=== PATIENT | male | born 1985 | race Two or more races ===

== ENCOUNTER 2023-06-02 05:55 | Inpatient (IN) | payer OTHER ==
[~2023-06-02] VITALS: Ht 175.3 cm; Wt 134.9 kg
[2023-06-02] MEDS ORDERED: SODIUM CHLORIDE 0.9% 1,000 ML IV ONE (07:45)
[2023-06-02 08:18] LABS: Albumin 3.2 g/dL (3.4-5.0); Calcium 8.6 mg/dL (8.5-10.1)
[2023-06-02 08:27] LABS: BUN/Creatinine Ratio 18.3 (10.0-20.0); Bilirubin, Total 0.5 mg/dL (0.2-1.0); Potassium 4.1 mmol/L (3.5-5.1); Total Protein 8.5 g/dL (6.4-8.2)
[2023-06-02 08:35] LABS: Basophils # (auto) 0.1 10 ^3/uL (0-0.2); Basophils % (auto) 0.8 % (0.0-2.0); Eosinophils # (auto) 0.8 10 ^3/uL (0-0.8); Eosinophils % (auto) 6.4 % (0.0-7.0); Hematocrit 47.4 % (41.0-53.0); Hemoglobin 15.8 g/dL (13.5-17.5); Lymphocytes # (auto) 2.1 10 ^3/uL (0.4-5.4); Lymphocytes % (auto) 16.6 % (10.0-50.0); Mean Corpuscular Hemoglobin 28.9 pg (28.0-32.0); Mean Corpuscular Hgb Conc. 33.2 g/dL (32.0-36.0); Mean Corpuscular Volume 87.1 fL (80.0-100.0); Monocytes # (auto) 0.8 10 ^3/uL (0-1.3); Monocytes % (auto) 6.4 % (0.0-12.0); Neutrophils # (auto) 8.7 10 ^3/uL (1.6-8.6); Neutrophils % (auto) 69.8 % (37.0-80.0); Nucleated Red Blood Cells % 0.2 %; Red Blood Cells 5.45 10^6/uL (4.5-5.90); Red Cell Distribution Width 16.1 % (11.8-14.3); White Blood Cell 12.4 10^3/uL (4.4-10.8)
[2023-06-02 08:49] LABS: INR 1.14 (0.9-1.15); Partial Thromboplastin Time 27.5 SEC (24.5-34.5)
[2023-06-02] MEDS ORDERED: cefTRIAXone 1GM/50ML D5W 50 ML IV ONE (09:30)
[2023-06-02] MEDS ORDERED: CLINDAMYCIN 900MG IV 50 ML IV ONE (09:30)
[2023-06-02 11:28] VITALS: PULSE 90; RESP 16; O2SAT 95
[2023-06-02] MEDS ORDERED: HYDROcodone-ACET 10/325MG TAB PO ONE (11:30)
[2023-06-02] MEDS ORDERED: cloNIDine HCL 0.1 MG TAB PO ONE (11:30)
[2023-06-02] MEDS ORDERED: CLINDAMYCIN HCL 150 MG CAP PO ONE (11:30)
[2023-06-02] MEDS ORDERED: VANCOMYCIN PER PHARMACY 0 MG IV SCH (13:00)
[2023-06-02] MEDS ORDERED: DOCUSATE SOD 100 MG CAP PO PRN (13:00)
[2023-06-02] MEDS: SODIUM CHLORIDE 0.9% 1,000 ML IV SCH ×2 (13:42→23:10)
[2023-06-02] MEDS ORDERED: PIPERACILLIN-TAZOB 3.375GM 100 ML IV ONE (13:45)
[2023-06-02] MEDS ORDERED: VANCOMYCIN 1GM/250ML 250 ML IV ONE (15:00)
[2023-06-02] MEDS: ONDANSETRON HCL 4 MG/2 ML VIAL IV PRN ×2 (15:07→20:55)
[2023-06-02] MEDS: MORPHINE SULFATE INJ 2 MG/ml SYRG IV PRN ×2 (15:10→20:58)
[2023-06-02] MEDS: ENOXAPARIN SOD 40 MG/0.4 ML SYRINGE SC SCH (15:16)
[2023-06-02 20:00] VITALS: PULSE 95; RESP 18; O2SAT 96
[2023-06-02] MEDS: PIPERACILLIN-TAZOB 3.375GM 100 ML IV SCH (20:59)
[2023-06-02] MEDS: VANCOMYCIN 1GM/250ML 250 ML IV SCH (23:10)
[2023-06-02] MEDS: levETIRAcetam 500 MG TAB PO SCH (23:10)
[2023-06-02] MEDS: hydrALAZINE HCL 20 MG/ML VL IV PRN (23:45)
[2023-06-03] MEDS: MORPHINE SULFATE INJ 2 MG/ml SYRG IV PRN ×3 (02:04→12:08)
[2023-06-03] MEDS: ONDANSETRON HCL 4 MG/2 ML VIAL IV PRN ×3 (02:04→12:08)
[2023-06-03] MEDS: PIPERACILLIN-TAZOB 3.375GM 100 ML IV SCH ×4 (02:50→18:15)
[2023-06-03] MEDS: SODIUM CHLORIDE 0.9% 1,000 ML IV SCH ×3 (05:56→22:20)
[2023-06-03 06:20] LABS: Basophils # (auto) 0 10 ^3/uL (0-0.2); Basophils % (auto) 0.3 % (0.0-2.0); Eosinophils # (auto) 0.5 10 ^3/uL (0-0.8); Eosinophils % (auto) 3.8 % (0.0-7.0); Hematocrit 47.5 % (41.0-53.0); Hemoglobin 15.9 g/dL (13.5-17.5); Lymphocytes % (auto) 7.9 % (10.0-50.0); Mean Corpuscular Hemoglobin 29.3 pg (28.0-32.0); Mean Corpuscular Hgb Conc. 33.6 g/dL (32.0-36.0); Mean Corpuscular Volume 87.2 fL (80.0-100.0); Monocytes # (auto) 0.7 10 ^3/uL (0-1.3); Monocytes % (auto) 5.8 % (0.0-12.0); Neutrophils # (auto) 10.5 10 ^3/uL (1.6-8.6); Neutrophils % (auto) 82.2 % (37.0-80.0); Nucleated Red Blood Cells % 0.2 %; Red Blood Cells 5.44 10^6/uL (4.5-5.90); Red Cell Distribution Width 16.6 % (11.8-14.3); White Blood Cell 12.8 10^3/uL (4.4-10.8)
[2023-06-03 06:36] LABS: Potassium 3.6 mmol/L (3.5-5.1)
[2023-06-03 06:53] LABS: BUN/Creatinine Ratio 12.6 (10.0-20.0); Bilirubin, Total 0.9 mg/dL (0.2-1.0); Calcium 8.1 mg/dL (8.5-10.1); Total Protein 8.5 g/dL (6.4-8.2)
[2023-06-03 07:16] LABS: Urine WBC None Seen /hpf (0 - 3)
[2023-06-03] MEDS: hydrALAZINE HCL 20 MG/ML VL IV PRN (08:21)
[2023-06-03 08:28] VITALS: PULSE 88; RESP 16; O2SAT 95
[2023-06-03 08:47] LABS: Urine Bacteria FEW /hpf (None Seen); Urine Blood Negative /uL (Negative); Urine Mucus FEW (None Seen); Urine Specific Gravity 1.013 (1.001-1.035)
[2023-06-03] MEDS: VANCOMYCIN 1GM/250ML 250 ML IV SCH ×3 (09:04→22:03)
[2023-06-03] MEDS: levETIRAcetam 500 MG TAB PO SCH ×2 (10:21→22:03)
[2023-06-03] MEDS: ENOXAPARIN SOD 40 MG/0.4 ML SYRINGE SC SCH (10:21)
[2023-06-03 17:00] VITALS: BP 149/96; PULSE 110; TEMP 98.2; O2SAT 92
[2023-06-03 22:00] VITALS: BP 155/107; PULSE 113; TEMP 98.9; O2SAT 94
[2023-06-04] MEDS: PIPERACILLIN-TAZOB 3.375GM 100 ML IV SCH ×4 (00:01→17:26)
[2023-06-04] MEDS: VANCOMYCIN 1GM/250ML 250 ML IV SCH ×3 (04:02→22:07)
[2023-06-04 05:00] VITALS: BP 166/105; PULSE 112; RESP 16; TEMP 99.4; O2SAT 96
[2023-06-04] MEDS: SODIUM CHLORIDE 0.9% 1,000 ML IV SCH ×3 (06:04→23:20)
[2023-06-04] MEDS: MORPHINE SULFATE INJ 2 MG/ml SYRG IV PRN ×2 (06:05→11:00)
[2023-06-04] MEDS ORDERED: KEP500T PO (06:30)
[2023-06-04] MEDS ORDERED: FURO40TA4 PO (06:31)
[2023-06-04] MEDS ORDERED: LISI2.5T47 PO (06:31)
[2023-06-04] MEDS ORDERED: CARV12.544 PO (06:32)
[2023-06-04] MEDS: hydrALAZINE HCL 20 MG/ML VL IV PRN (07:09)
[2023-06-04 08:30] VITALS: BP 161/89; PULSE 102; RESP 19; TEMP 98.2; O2SAT 95
[2023-06-04] MEDS: levETIRAcetam 500 MG TAB PO SCH ×2 (09:21→22:00)
[2023-06-04] MEDS: ENOXAPARIN SOD 40 MG/0.4 ML SYRINGE SC SCH (09:22)
[2023-06-04 09:40] VITALS: BP 161/89; PULSE 102; RESP 19; TEMP 98.2; O2SAT 95
[2023-06-04 11:14] VITALS: BP 159/113; PULSE 113
[2023-06-04] MEDS: ACETAMINOPHEN 325 MG TAB PO PRN (13:03)
[2023-06-04 14:46] VITALS: BP 150/106; PULSE 108; RESP 17; TEMP 98.2; O2SAT 100
[2023-06-04 22:00] VITALS: BP 155/95; PULSE 104; RESP 17; TEMP 97.8; O2SAT 100
[2023-06-04] MEDS: MUPIROCIN 2% OINT 15gm or 22gm FOR MRSA NARES EACHNOSTRI SCH (22:38)
[2023-06-05] MEDS: PIPERACILLIN-TAZOB 3.375GM 100 ML IV SCH ×5 (00:09→23:39)
[2023-06-05] MEDS: hydrALAZINE HCL 20 MG/ML VL IV PRN (04:19)
[2023-06-05 04:35] VITALS: BP 156/108; PULSE 109; RESP 21; TEMP 98.1; O2SAT 100
[2023-06-05 05:50] LABS: BUN/Creatinine Ratio 11.2 (10.0-20.0); Calcium 8.6 mg/dL (8.5-10.1); Potassium 3.7 mmol/L (3.5-5.1)
[2023-06-05] MEDS: VANCOMYCIN 1GM/250ML 250 ML IV SCH ×2 (05:59→17:59)
[2023-06-05] MEDS: MORPHINE SULFATE INJ 2 MG/ml SYRG IV PRN ×4 (06:00→23:45)
[2023-06-05] MEDS: ACETAMINOPHEN 325 MG TAB PO PRN ×2 (06:03→12:42)
[2023-06-05] MEDS: SODIUM CHLORIDE 0.9% 1,000 ML IV SCH ×2 (07:40→16:00)
[2023-06-05 08:15] VITALS: O2SAT 95
[2023-06-05 09:00] VITALS: BP 191/96; PULSE 102; RESP 20; TEMP 98.3; O2SAT 95
[2023-06-05] MEDS: FUROSEMIDE 40 MG TAB PO SCH (10:15)
[2023-06-05] MEDS: levETIRAcetam 500 MG TAB PO SCH ×2 (10:15→21:28)
[2023-06-05] MEDS: CARVEDILOL 12.5 MG TAB PO SCH (10:16)
[2023-06-05] MEDS: LISINOPRIL 10 MG TAB PO SCH (10:17)
[2023-06-05] MEDS: ENOXAPARIN SOD 40 MG/0.4 ML SYRINGE SC SCH (10:17)
[2023-06-05] MEDS: MUPIROCIN 2% OINT 15gm or 22gm FOR MRSA NARES EACHNOSTRI SCH ×2 (10:21→21:32)
[2023-06-05 13:00] VITALS: BP_SYST 149; BP_SYST 172; BP_DIAS 103; BP_DIAS 88; PULSE 108; RESP 20; TEMP 98; O2SAT 93
[2023-06-05 17:00] VITALS: BP 135/60; PULSE 75; RESP 19; TEMP 97.3; O2SAT 94
[2023-06-05 22:00] VITALS: BP 152/94; PULSE 82; RESP 16; TEMP 97.8; O2SAT 95
[2023-06-06] MEDS: SODIUM CHLORIDE 0.9% 1,000 ML IV SCH ×3 (00:20→17:00)
[2023-06-06] MEDS: VANCOMYCIN 1GM/250ML 250 ML IV SCH ×2 (03:00→09:22)
[2023-06-06 05:00] VITALS: BP 137/90; PULSE 97; RESP 20; TEMP 97.8; O2SAT 97
[2023-06-06] MEDS: PIPERACILLIN-TAZOB 3.375GM 100 ML IV SCH (05:11)
[2023-06-06] MEDS: ACETAMINOPHEN 325 MG TAB PO PRN (05:30)
[2023-06-06] MEDS: MORPHINE SULFATE INJ 2 MG/ml SYRG IV PRN (06:49)
[2023-06-06 08:15] VITALS: O2SAT 96
[2023-06-06 09:00] VITALS: BP 175/107; PULSE 92; RESP 21; TEMP 98.1; O2SAT 94
[2023-06-06] MEDS: levETIRAcetam 500 MG TAB PO SCH ×2 (09:22→22:07)
[2023-06-06] MEDS: CARVEDILOL 12.5 MG TAB PO SCH (09:23)
[2023-06-06] MEDS: FUROSEMIDE 40 MG TAB PO SCH (09:23)
[2023-06-06] MEDS: LISINOPRIL 10 MG TAB PO SCH (09:23)
[2023-06-06] MEDS: ENOXAPARIN SOD 40 MG/0.4 ML SYRINGE SC SCH (09:23)
[2023-06-06] MEDS ORDERED: CEFTRIAXONE SODIUM 2 GM in D5W 5% 100 ML IV ONE (11:30)
[2023-06-06] MEDS: MUPIROCIN 2% OINT 15gm or 22gm FOR MRSA NARES EACHNOSTRI SCH ×2 (11:34→22:09)
[2023-06-06] MEDS: HYDROcodone-ACET 5/325MG TAB PO PRN ×2 (11:44→22:07)
[2023-06-06 13:00] VITALS: BP 131/92; PULSE 86; RESP 19; TEMP 97.6; O2SAT 90
[2023-06-06 17:00] VITALS: BP 135/104; PULSE 89; RESP 21; TEMP 97.6; O2SAT 97
[2023-06-06] MEDS: hydrALAZINE HCL 20 MG/ML VL IV PRN (22:09)
[2023-06-06 22:36] VITALS: BP 170/108; PULSE 91; RESP 22; TEMP 98.5; O2SAT 96
[2023-06-07 05:11] VITALS: BP_SYST 0; BP_SYST 169; BP_DIAS 126; PULSE 111; RESP 22; TEMP 98.3; O2SAT 97
[2023-06-07] MEDS: MORPHINE SULFATE INJ 2 MG/ml SYRG IV PRN (05:42)
[2023-06-07] MEDS: SODIUM CHLORIDE 0.9% 1,000 ML IV SCH ×3 (05:42→18:00)
[2023-06-07] MEDS: levETIRAcetam 500 MG TAB PO SCH ×2 (07:35→21:13)
[2023-06-07] MEDS: CARVEDILOL 12.5 MG TAB PO SCH (07:36)
[2023-06-07] MEDS: ENOXAPARIN SOD 40 MG/0.4 ML SYRINGE SC SCH (07:36)
[2023-06-07] MEDS: FUROSEMIDE 40 MG TAB PO SCH (07:36)
[2023-06-07] MEDS: HYDROcodone-ACET 5/325MG TAB PO PRN ×3 (07:36→21:14)
[2023-06-07] MEDS: LISINOPRIL 10 MG TAB PO SCH (07:36)
[2023-06-07] MEDS: CEFTRIAXONE SODIUM 2 GM in D5W 5% 100 ML IV SCH (07:37)
[2023-06-07] MEDS: MUPIROCIN 2% OINT 15gm or 22gm FOR MRSA NARES EACHNOSTRI SCH ×2 (07:37→21:15)
[2023-06-07 07:42] VITALS: O2SAT 95
[2023-06-07 09:00] VITALS: BP 159/103; PULSE 104; RESP 19; TEMP 98.6; O2SAT 98
[2023-06-07 13:00] VITALS: BP 135/89; PULSE 89; RESP 21; TEMP 98.3; O2SAT 92
[2023-06-07 17:00] VITALS: BP 157/109; PULSE 87; RESP 19; TEMP 97.7; O2SAT 96
[2023-06-07] MEDS: LINEZOLID 600MG/300ML 300 ML IV SCH (21:14)
[2023-06-07 22:00] VITALS: BP 139/92; PULSE 83; RESP 18; TEMP 98.4; O2SAT 95
[2023-06-08] MEDS: SODIUM CHLORIDE 0.9% 1,000 ML IV SCH ×3 (02:20→18:46)
[2023-06-08] MEDS: MORPHINE SULFATE INJ 2 MG/ml SYRG IV PRN ×4 (04:26→18:42)
[2023-06-08 05:00] VITALS: BP 151/118; PULSE 95; RESP 18; TEMP 97.7; O2SAT 98
[2023-06-08] MEDS: HYDROcodone-ACET 5/325MG TAB PO PRN ×2 (05:19→12:10)
[2023-06-08] MEDS: hydrALAZINE HCL 20 MG/ML VL IV PRN (05:28)
[2023-06-08 09:10] VITALS: PULSE 86; RESP 20; TEMP 97.7
[2023-06-08] MEDS: ENOXAPARIN SOD 40 MG/0.4 ML SYRINGE SC SCH ×2 (09:13→21:52)
[2023-06-08 09:14] VITALS: BP 170/140; PULSE 86; RESP 20; TEMP 97.7; O2SAT 100
[2023-06-08] MEDS: FUROSEMIDE 40 MG TAB PO SCH (09:15)
[2023-06-08] MEDS: LISINOPRIL 10 MG TAB PO SCH (09:15)
[2023-06-08] MEDS: LINEZOLID 600MG/300ML 300 ML IV SCH ×3 (09:16→21:54)
[2023-06-08] MEDS: CARVEDILOL 12.5 MG TAB PO SCH (09:16)
[2023-06-08] MEDS: levETIRAcetam 500 MG TAB PO SCH ×2 (09:16→21:51)
[2023-06-08] MEDS ORDERED: cloNIDine HCL 0.1 MG TAB PO PRN (10:00)
[2023-06-08] MEDS: MUPIROCIN 2% OINT 15gm or 22gm FOR MRSA NARES EACHNOSTRI SCH ×2 (12:02→21:53)
[2023-06-08] MEDS: CEFTRIAXONE SODIUM 2 GM in D5W 5% 100 ML IV SCH (12:02)
[2023-06-08 13:08] VITALS: BP 147/88; PULSE 95; RESP 19; TEMP 98; O2SAT 96
[2023-06-08 16:25] VITALS: BP 150/85; PULSE 87; RESP 19; TEMP 98.2; O2SAT 100
[2023-06-08 22:00] VITALS: BP 139/87; PULSE 88; RESP 19; TEMP 97.7; O2SAT 98
[2023-06-09] MEDS: SODIUM CHLORIDE 0.9% 1,000 ML IV SCH ×3 (03:20→20:00)
[2023-06-09 05:00] VITALS: BP 171/107; PULSE 92; RESP 16; TEMP 97.6; O2SAT 95
[2023-06-09] MEDS: HYDROcodone-ACET 5/325MG TAB PO PRN ×2 (05:02→19:53)
[2023-06-09] MEDS: levETIRAcetam 500 MG TAB PO SCH ×2 (08:58→21:38)
[2023-06-09] MEDS: LISINOPRIL 10 MG TAB PO SCH (08:58)
[2023-06-09] MEDS: ENOXAPARIN SOD 40 MG/0.4 ML SYRINGE SC SCH ×2 (08:59→21:38)
[2023-06-09] MEDS: CARVEDILOL 12.5 MG TAB PO SCH (08:59)
[2023-06-09] MEDS: LINEZOLID 600MG/300ML 300 ML IV SCH ×2 (08:59→21:38)
[2023-06-09] MEDS: FUROSEMIDE 40 MG TAB PO SCH (08:59)
[2023-06-09 09:22] VITALS: BP 144/100; PULSE 89; RESP 19; TEMP 98.3; O2SAT 96
[2023-06-09 09:28] VITALS: BP 144/100; PULSE 89; RESP 19; TEMP 98.3; O2SAT 96
[2023-06-09] MEDS: MUPIROCIN 2% OINT 15gm or 22gm FOR MRSA NARES EACHNOSTRI SCH (10:50)
[2023-06-09] MEDS: HYDROmorphone HCL 2 MG/ML VL/or syr IV PRN ×2 (10:51→18:39)
[2023-06-09] MEDS: CEFTRIAXONE SODIUM 2 GM in D5W 5% 100 ML IV SCH ×2 (12:20→13:07)
[2023-06-09 13:14] VITALS: BP 118/80; PULSE 85; RESP 19; TEMP 97.2; O2SAT 96
[2023-06-09 16:40] VITALS: BP 101/56; PULSE 80; RESP 19; TEMP 97.5; O2SAT 96
[2023-06-09 22:00] VITALS: BP 142/87; PULSE 87; RESP 18; TEMP 97.4; O2SAT 94
[2023-06-10] MEDS: HYDROmorphone HCL 2 MG/ML VL/or syr IV PRN ×4 (03:42→21:31)
[2023-06-10] MEDS: SODIUM CHLORIDE 0.9% 1,000 ML IV SCH ×3 (04:37→21:00)
[2023-06-10 05:00] VITALS: BP 144/103; PULSE 84; RESP 18; TEMP 97.6; O2SAT 96
[2023-06-10] MEDS: ENOXAPARIN SOD 40 MG/0.4 ML SYRINGE SC SCH ×2 (08:35→21:31)
[2023-06-10] MEDS: LISINOPRIL 10 MG TAB PO SCH (08:36)
[2023-06-10] MEDS: FUROSEMIDE 40 MG TAB PO SCH (08:36)
[2023-06-10] MEDS: levETIRAcetam 500 MG TAB PO SCH ×2 (08:36→21:30)
[2023-06-10] MEDS: CEFTRIAXONE SODIUM 2 GM in D5W 5% 100 ML IV SCH (08:37)
[2023-06-10] MEDS: CARVEDILOL 12.5 MG TAB PO SCH (08:37)
[2023-06-10] MEDS: HYDROcodone-ACET 5/325MG TAB PO PRN ×2 (08:37→14:53)
[2023-06-10 09:00] VITALS: BP 137/88; PULSE 97; RESP 18; TEMP 97.6; O2SAT 100
[2023-06-10] MEDS: LINEZOLID 600MG/300ML 300 ML IV SCH ×2 (09:50→21:30)
[2023-06-10 13:00] VITALS: BP 149/98; PULSE 90; RESP 18; TEMP 97.3; O2SAT 97
[2023-06-10 17:00] VITALS: BP 112/67; PULSE 83; RESP 14; TEMP 98.6; O2SAT 96
[2023-06-10 21:47] VITALS: BP 130/90; PULSE 86; RESP 17; TEMP 97.5; O2SAT 98
[2023-06-11] MEDS: HYDROmorphone HCL 2 MG/ML VL/or syr IV PRN ×3 (03:55→18:55)
[2023-06-11 04:30] VITALS: BP 129/96; PULSE 83; RESP 18; TEMP 98.4; O2SAT 98
[2023-06-11] MEDS: SODIUM CHLORIDE 0.9% 1,000 ML IV SCH ×3 (05:20→22:00)
[2023-06-11] MEDS: CEFTRIAXONE SODIUM 2 GM in D5W 5% 100 ML IV SCH (08:52)
[2023-06-11] MEDS: ENOXAPARIN SOD 40 MG/0.4 ML SYRINGE SC SCH ×2 (08:52→21:38)
[2023-06-11] MEDS: levETIRAcetam 500 MG TAB PO SCH ×2 (08:52→21:38)
[2023-06-11] MEDS: LISINOPRIL 10 MG TAB PO SCH (08:53)
[2023-06-11] MEDS: FUROSEMIDE 40 MG TAB PO SCH (08:53)
[2023-06-11] MEDS: CARVEDILOL 12.5 MG TAB PO SCH (08:54)
[2023-06-11] MEDS: HYDROcodone-ACET 5/325MG TAB PO PRN (08:54)
[2023-06-11 09:16] VITALS: BP 158/96; PULSE 95; RESP 20; TEMP 97.7; O2SAT 96
[2023-06-11] MEDS: LINEZOLID 600MG/300ML 300 ML IV SCH ×2 (10:05→21:38)
[2023-06-11 12:46] VITALS: BP 148/95; PULSE 96; RESP 20; TEMP 98; O2SAT 100
[2023-06-11 17:34] VITALS: BP 110/66; PULSE 95; RESP 21; TEMP 97.7; O2SAT 92
[2023-06-11] MEDS: DAKINS QUARTER STR 0.125% (NaHypochlorite) 473 ML TOPICAL SOL TOP SCH (21:44)
[2023-06-11 22:00] VITALS: BP 116/68; PULSE 82; RESP 18; TEMP 97.4; O2SAT 93
[2023-06-12] MEDS: HYDROmorphone HCL 2 MG/ML VL/or syr IV PRN ×3 (03:30→15:45)
[2023-06-12 05:00] VITALS: BP 143/94; PULSE 90; RESP 18; TEMP 98.1; O2SAT 95
[2023-06-12] MEDS: SODIUM CHLORIDE 0.9% 1,000 ML IV SCH ×2 (06:29→14:40)
[2023-06-12 08:00] VITALS: PULSE 78; RESP 18; O2SAT 96
[2023-06-12 08:32] VITALS: BP 131/69; PULSE 95; RESP 21; TEMP 98; O2SAT 96
[2023-06-12] MEDS: LINEZOLID 600MG/300ML 300 ML IV SCH (08:40)
[2023-06-12] MEDS: CEFTRIAXONE SODIUM 2 GM in D5W 5% 100 ML IV SCH (08:40)
[2023-06-12] MEDS: CARVEDILOL 12.5 MG TAB PO SCH (08:41)
[2023-06-12] MEDS: FUROSEMIDE 40 MG TAB PO SCH (08:42)
[2023-06-12] MEDS: levETIRAcetam 500 MG TAB PO SCH (08:42)
[2023-06-12] MEDS: ENOXAPARIN SOD 40 MG/0.4 ML SYRINGE SC SCH (08:43)
[2023-06-12] MEDS: LISINOPRIL 10 MG TAB PO SCH (08:43)
[2023-06-12] MEDS: ONDANSETRON HCL 4 MG/2 ML VIAL IV PRN ×2 (08:47→15:46)
[2023-06-12] MEDS ORDERED: CIPR-173 PO (09:35)
[2023-06-12] MEDS ORDERED: HYDR-4902 PO (09:35)
[2023-06-12] MEDS ORDERED: LINE1TAB6 PO (09:35)
[2023-06-12 12:37] VITALS: BP 126/87; PULSE 93; RESP 20; TEMP 97.8; O2SAT 93
[2023-06-12] MEDS: DAKINS QUARTER STR 0.125% (NaHypochlorite) 473 ML TOPICAL SOL TOP SCH (14:33)
[2023-06-12] MEDS: HYDROcodone-ACET 5/325MG TAB PO PRN (14:33)
[2023-06-12 15:03] VITALS: BP 126/87; PULSE 92; TEMP 36.6
[2023-06-12 16:07] VITALS: BP 128/98; PULSE 84; RESP 18
== END 2023-06-12 16:17 | disposition home or self-care (01) | DRG 383 ==
LOC: ER 05:55 → EDBD 05:55 → OVERFLOW 13:17 → EAST 06-03 14:21
PROVIDERS: ADMIT Family Medicine; ATTEND Family Medicine
PROC: 05HC33Z Insertion of Infusion Device into Left Basilic Vein, Percutaneous Approach (ICD-10-PCS; principal; 2023-06-09)
PROC: B54NZZA Ultrasonography of Left Upper Extremity Veins, Guidance (ICD-10-PCS; 2023-06-09)
DX: L03.115 Cellulitis of right lower limb (principal); L97.319 Non-pressure chronic ulcer of right ankle with unspecified severity; L03.116 Cellulitis of left lower limb; R74.01 Elevation of levels of liver transaminase levels; F15.10 Other stimulant abuse, uncomplicated; I10 Essential (primary) hypertension; B95.62 Methicillin resistant Staphylococcus aureus infection as the cause of diseases classified elsewhere
CPT/HCPCS: 36415; 71045; 73700; 80048; 80053; 80202; 81001; 83605; 83880; 85025; 85610; 85652; 85730; 86141; 87040; 87077; 87081; 87186; 87205; 93971; 96365; 96367; 97110; 97116; 97163; 97530; G0378; J0696; J2405; J2543; J7060

== ENCOUNTER 2023-08-07 23:10 | Inpatient (IN) | payer OTHER ==
[~2023-08-07] VITALS: Ht 175.3 cm; Wt 129.5 kg
[~2023-08-07 23:10] MED LIST: CARV12.544 PO; CIPR-173 PO; FURO40TA4 PO; HYDR-4902 PO; KEP500T PO; LINE1TAB6 PO; LISI2.5T47 PO
[2023-08-07 23:45] VITALS: PULSE 91; RESP 18; O2SAT 96
[2023-08-08] VITALS (7 sets, daily range): BP systolic 119–157; BP diastolic 80–109; PULSE 90–109; RESP 17–20; TEMP 97.8–98.6; O2SAT 91–98
[2023-08-08] MEDS ORDERED: cefTRIAXone SOD 1,000 MG VL IV ONE
[2023-08-08] MEDS ORDERED: SODIUM CHLORIDE 0.9% 1,000 ML IV ONE
[2023-08-08 00:30] LABS: Hematocrit 45.7 % (41.0-53.0); Hemoglobin 15.5 g/dL (13.5-17.5); Mean Corpuscular Hemoglobin 29.8 pg (28.0-32.0); Mean Corpuscular Volume 87.7 fL (80.0-100.0); Red Blood Cells 5.21 10^6/uL (4.5-5.90); Red Cell Distribution Width 17.3 % (11.8-14.3); White Blood Cell 9.4 10^3/uL (4.4-10.8)
[2023-08-08 00:36] LABS: Alanine Aminotransferase 25 U/L (7-40); Albumin 3.8 g/dL (3.2-4.8); Alkaline Phosphatase 163 U/L (46-116); Anion Gap 5 (5-15); Aspartate Aminotransferase 33 U/L (13-40); BUN/Creatinine Ratio 9.8 (10.0-20.0); Bilirubin, Total 0.6 mg/dL (0.2-1.0); Blood Urea Nitrogen 11 mg/dL (9-23); Calcium 8.8 mg/dL (8.7-10.4); Carbon Dioxide 25 mmol/L (20-30); Chloride 105 mmol/L (98-107); Glucose 109 mg/dL (74-106); Potassium 4.1 mmol/L (3.5-5.1); Sodium 135 mmol/L (136-145)
[2023-08-08 00:37] LABS: Basophils % (manual) 0 (0.0-2.0); Blast Cells 0; Metamyelocytes % 0; Myelocytes % 0; Promyelocytes % 0; Reactive Lymphocytes 0
[2023-08-08] MEDS ORDERED: cefTRIAXone 1GM/50ML D5W 50 ML IV ONE (00:54)
[2023-08-08] MEDS: VANCOMYCIN 1GM/250ML 250 ML IV ONE ×2 (00:59→01:17)
[2023-08-08 01:12] LABS: Anisocytosis Slight; Band Neutrophils % (manual) 4; Eosinophils % (manual) 4 (0-7); Lymphocytes % (manual) 9 (10.0-50.0); Monocytes % (manual) 8 (0-12); Platelet Estimate Adequate
[2023-08-08 01:13] LABS: Large Platelets FEW
[2023-08-08] MEDS ORDERED: LABETALOL HCL 5 MG/ML 4ML SYRINGE IV ONE (02:15)
[2023-08-08] MEDS ORDERED: MORPHINE SULFATE 4 MG/ML SYR/VIAL IV ONE ×2 (05:00)
[2023-08-08 05:23] LABS: Amphetamine Screen, Urine Pos (NEGATIVE); Barbiturate Scree,Urine Neg (NEGATIVE); Benzodiazephine Screen, Urine Neg (NEGATIVE); Cannabinoid Screen, Urine Neg (NEGATIVE); Cocaine Screen, Urine Neg (NEGATIVE); Opiate Scree,Urine Neg (NEGATIVE); Phencyclidine Screen, Urine Neg (NEGATIVE)
[2023-08-08] MEDS ORDERED: ACETAMINOPHEN 325 MG TAB PO PRN (05:45)
[2023-08-08] MEDS ORDERED: VANCOMYCIN PER PHARMACY 0 MG IV SCH (05:45)
[2023-08-08] MEDS ORDERED: ONDANSETRON HCL 4 MG/2 ML VIAL IV PRN (05:45)
[2023-08-08] MEDS ORDERED: TEMAZEPAM 15 MG CAP PO PRN (05:45)
[2023-08-08] MEDS: CARVEDILOL 12.5 MG TAB PO SCH ×2 (06:23→21:03)
[2023-08-08] MEDS: LISINOPRIL 10 MG TAB PO SCH (06:23)
[2023-08-08] MEDS ORDERED: cefTRIAXone 1GM/50ML D5W 50 ML IV SCH (09:00)
[2023-08-08] MEDS ORDERED: VANCOMYCIN 1GM/250ML 250 ML IV SCH ×2 (09:00→22:30)
[2023-08-08] MEDS: MEROPENEM 2 GM in SODIUM CHL 0.9% 250 ML IV SCH ×2 (09:53→18:33)
[2023-08-08] MEDS: levETIRAcetam 500 MG TAB PO SCH ×2 (10:02→21:03)
[2023-08-08] MEDS: FUROSEMIDE 40 MG TAB PO SCH (10:03)
[2023-08-08] MEDS: ENOXAPARIN SOD 40 MG/0.4 ML SYRINGE SC SCH (10:03)
[2023-08-08] MEDS: MORPHINE SULFATE INJ 2 MG/ml SYRG IV PRN ×2 (10:07→17:41)
[2023-08-08 12:06] LABS: LDL Cholesterol 76 mg/dL (< 100); Triglycerides 41 mg/dL (< 150)
[2023-08-08 12:08] LABS: Cholesterol 127 mg/dL (< 200); HDL Cholesterol 44 mg/dL (40-59)
[2023-08-08] MEDS: hydrALAZINE HCL 20 MG/ML VL IV PRN (15:29)
[2023-08-08] MEDS: VANCOMYCIN 1GM/250ML 250 ML IV SCH (23:29)
[2023-08-08] MEDS: HYDROcodone-ACET 5/325MG TAB PO PRN (23:29)
[2023-08-09] MEDS: MEROPENEM 2 GM in SODIUM CHL 0.9% 250 ML IV SCH ×3 (02:00→17:39)
[2023-08-09] MEDS: HYDROcodone-ACET 5/325MG TAB PO PRN ×4 (04:03→21:26)
[2023-08-09 07:05] LABS: Basophils # (auto) 0 10 ^3/uL (0-0.2); Basophils % (auto) 0.4 % (0.0-2.0); Eosinophils # (auto) 0.7 10 ^3/uL (0-0.8); Eosinophils % (auto) 7.7 % (0.0-7.0); Hematocrit 45.7 % (41.0-53.0); Hemoglobin 15.7 g/dL (13.5-17.5); Lymphocytes # (auto) 0.9 10 ^3/uL (0.4-5.4); Lymphocytes % (auto) 9.5 % (10.0-50.0); Mean Corpuscular Hemoglobin 30.4 pg (28.0-32.0); Mean Corpuscular Hgb Conc. 34.4 g/dL (32.0-36.0); Mean Corpuscular Volume 88.3 fL (80.0-100.0); Monocytes # (auto) 0.7 10 ^3/uL (0-1.3); Monocytes % (auto) 7.4 % (0.0-12.0); Neutrophils # (auto) 7.1 10 ^3/uL (1.6-8.6); Nucleated Red Blood Cells % 0.1 %; Red Blood Cells 5.18 10^6/uL (4.5-5.90); Red Cell Distribution Width 17.3 % (11.8-14.3); White Blood Cell 9.5 10^3/uL (4.4-10.8)
[2023-08-09 07:12] LABS: Alanine Aminotransferase 21 U/L (7-40); Albumin 3.6 g/dL (3.2-4.8); Alkaline Phosphatase 129 U/L (46-116); Anion Gap 8 (5-15); Aspartate Aminotransferase 31 U/L (13-40); BUN/Creatinine Ratio 11.9 (10.0-20.0); Blood Urea Nitrogen 10 mg/dL (9-23); Calcium 8.9 mg/dL (8.5-10.1); Carbon Dioxide 23 mmol/L (20-30); Chloride 105 mmol/L (98-107); Glucose 105 mg/dL (74-106); Potassium 4.2 mmol/L (3.5-5.1); Sodium 136 mmol/L (136-145)
[2023-08-09 07:13] LABS: Bilirubin, Total 1.5 mg/dL (0.2-1.0); Total Protein 7.8 g/dL (5.7-8.2)
[2023-08-09] MEDS: VANCOMYCIN 1GM/250ML 250 ML IV SCH ×3 (07:41→23:51)
[2023-08-09 08:00] VITALS: O2SAT 96
[2023-08-09 08:50] VITALS: BP 151/17; PULSE 90; RESP 19; TEMP 98.2; O2SAT 96
[2023-08-09] MEDS: levETIRAcetam 500 MG TAB PO SCH ×2 (09:05→21:04)
[2023-08-09] MEDS: ENOXAPARIN SOD 40 MG/0.4 ML SYRINGE SC SCH (09:05)
[2023-08-09] MEDS: CARVEDILOL 12.5 MG TAB PO SCH ×2 (09:05→21:08)
[2023-08-09] MEDS: FUROSEMIDE 40 MG TAB PO SCH (09:06)
[2023-08-09] MEDS: LISINOPRIL 10 MG TAB PO SCH (09:06)
[2023-08-09] MEDS: MORPHINE SULFATE INJ 2 MG/ml SYRG IV PRN ×4 (09:07→23:58)
[2023-08-09] MEDS: hydrALAZINE HCL 20 MG/ML VL IV PRN ×2 (12:10→21:13)
[2023-08-09 12:58] VITALS: BP 166/118; PULSE 93; RESP 17; TEMP 98.3; O2SAT 96
[2023-08-09 16:33] VITALS: BP 166/140; PULSE 96; RESP 19; TEMP 98.3; O2SAT 95
[2023-08-09 20:10] VITALS: BP 159/99; PULSE 107; RESP 20; O2SAT 94
[2023-08-09 22:00] VITALS: BP 159/99; PULSE 107; RESP 16; TEMP 98.9; O2SAT 95
[2023-08-10] MEDS: MEROPENEM 2 GM in SODIUM CHL 0.9% 250 ML IV SCH ×3 (02:15→17:41)
[2023-08-10] MEDS: HYDROcodone-ACET 5/325MG TAB PO PRN ×3 (03:38→21:40)
[2023-08-10] MEDS: MORPHINE SULFATE INJ 2 MG/ml SYRG IV PRN ×2 (04:52→09:24)
[2023-08-10 05:00] VITALS: BP 138/95; PULSE 104; RESP 18; TEMP 98.4; O2SAT 96
[2023-08-10 05:53] LABS: Anion Gap 11 (5-15); Basophils # (auto) 0 10 ^3/uL (0-0.2); Basophils % (auto) 0.2 % (0.0-2.0); Carbon Dioxide 23 mmol/L (20-30); Chloride 101 mmol/L (98-107); Eosinophils % (auto) 7.6 % (0.0-7.0); Hematocrit 50.3 % (41.0-53.0); Hemoglobin 16.8 g/dL (13.5-17.5); Lymphocytes # (auto) 0.8 10 ^3/uL (0.4-5.4); Lymphocytes % (auto) 6.6 % (10.0-50.0); Mean Corpuscular Hemoglobin 29.8 pg (28.0-32.0); Mean Corpuscular Hgb Conc. 33.4 g/dL (32.0-36.0); Mean Corpuscular Volume 89.1 fL (80.0-100.0); Monocytes # (auto) 1.2 10 ^3/uL (0-1.3); Monocytes % (auto) 9.1 % (0.0-12.0); Neutrophils # (auto) 9.8 10 ^3/uL (1.6-8.6); Neutrophils % (auto) 76.5 % (37.0-80.0); Potassium 4.1 mmol/L (3.5-5.1); Red Blood Cells 5.65 10^6/uL (4.5-5.90); Red Cell Distribution Width 17.7 % (11.8-14.3); Sodium 135 mmol/L (136-145); White Blood Cell 12.7 10^3/uL (4.4-10.8)
[2023-08-10 05:54] LABS: Calcium 8.9 mg/dL (8.7-10.4)
[2023-08-10 05:59] LABS: Glucose 90 mg/dL (74-106)
[2023-08-10 06:00] LABS: BUN/Creatinine Ratio 9.9 (10.0-20.0); Blood Urea Nitrogen 9 mg/dL (9-23)
[2023-08-10 08:50] VITALS: BP 162/109; PULSE 114; RESP 18; TEMP 98.2; O2SAT 95
[2023-08-10] MEDS: ENOXAPARIN SOD 40 MG/0.4 ML SYRINGE SC SCH (09:20)
[2023-08-10] MEDS: VANCOMYCIN 1GM/250ML 250 ML IV SCH (09:20)
[2023-08-10] MEDS: CARVEDILOL 12.5 MG TAB PO SCH ×2 (09:21→21:36)
[2023-08-10] MEDS: LISINOPRIL 10 MG TAB PO SCH (09:21)
[2023-08-10] MEDS: FUROSEMIDE 40 MG TAB PO SCH (09:21)
[2023-08-10] MEDS: levETIRAcetam 500 MG TAB PO SCH ×2 (09:22→21:36)
[2023-08-10 12:30] VITALS: BP 158/114; PULSE 103; RESP 20; TEMP 98.7; O2SAT 95
[2023-08-10] MEDS: MORPHINE SULFATE 4 MG/ML SYR/VIAL IV PRN ×3 (14:15→22:53)
[2023-08-10 17:00] VITALS: BP 157/105; PULSE 107; RESP 20; TEMP 98.3; O2SAT 94
[2023-08-10] MEDS: hydrALAZINE HCL 20 MG/ML VL IV PRN (17:41)
[2023-08-10 20:00] VITALS: BP 120/75; PULSE 104; RESP 17; TEMP 97.9; O2SAT 94
[2023-08-10 22:00] VITALS: BP 120/75; PULSE 104; RESP 17; TEMP 97.9; O2SAT 94
[2023-08-11] MEDS: HYDROcodone-ACET 5/325MG TAB PO PRN ×2 (02:22→18:43)
[2023-08-11] MEDS: MEROPENEM 2 GM in SODIUM CHL 0.9% 250 ML IV SCH ×3 (02:28→18:02)
[2023-08-11] MEDS: hydrALAZINE HCL 20 MG/ML VL IV PRN (04:42)
[2023-08-11] MEDS: MORPHINE SULFATE 4 MG/ML SYR/VIAL IV PRN ×4 (04:43→22:26)
[2023-08-11 05:00] VITALS: BP 169/94; PULSE 91; RESP 18; TEMP 98; O2SAT 96
[2023-08-11 08:00] VITALS: PULSE 99; RESP 20; O2SAT 95
[2023-08-11 08:49] VITALS: BP 160/104; PULSE 104; RESP 19; TEMP 98.1; O2SAT 98
[2023-08-11] MEDS: LISINOPRIL 10 MG TAB PO SCH (09:46)
[2023-08-11] MEDS: levETIRAcetam 500 MG TAB PO SCH ×2 (09:47→22:25)
[2023-08-11] MEDS: CARVEDILOL 12.5 MG TAB PO SCH ×4 (09:47→22:25)
[2023-08-11] MEDS: FUROSEMIDE 40 MG TAB PO SCH (09:47)
[2023-08-11] MEDS: ENOXAPARIN SOD 40 MG/0.4 ML SYRINGE SC SCH (09:48)
[2023-08-11 11:38] LABS: Basophils # (auto) 0 10 ^3/uL (0-0.2); Basophils % (auto) 0.2 % (0.0-2.0); Eosinophils # (auto) 0.6 10 ^3/uL (0-0.8); Eosinophils % (auto) 5.7 % (0.0-7.0); Hematocrit 55.1 % (41.0-53.0); Hemoglobin 18.5 g/dL (13.5-17.5); Lymphocytes % (auto) 9.7 % (10.0-50.0); Mean Corpuscular Hemoglobin 29.9 pg (28.0-32.0); Mean Corpuscular Hgb Conc. 33.6 g/dL (32.0-36.0); Mean Corpuscular Volume 89.1 fL (80.0-100.0); Monocytes # (auto) 1.1 10 ^3/uL (0-1.3); Monocytes % (auto) 10.7 % (0.0-12.0); Neutrophils # (auto) 7.4 10 ^3/uL (1.6-8.6); Neutrophils % (auto) 73.7 % (37.0-80.0); Nucleated Red Blood Cells % 0.5 %; Red Blood Cells 6.19 10^6/uL (4.5-5.90); Red Cell Distribution Width 17.6 % (11.8-14.3)
[2023-08-11 11:45] LABS: Chloride 99 mmol/L (98-107); Potassium 4.2 mmol/L (3.5-5.1); Sodium 133 mmol/L (136-145)
[2023-08-11 11:46] LABS: Anion Gap 5 (5-15); Calcium 9.3 mg/dL (8.7-10.4); Carbon Dioxide 29 mmol/L (20-30)
[2023-08-11 11:51] LABS: BUN/Creatinine Ratio 11.3 (10.0-20.0); Blood Urea Nitrogen 11 mg/dL (9-23); Glucose 94 mg/dL (74-106)
[2023-08-11 12:30] VITALS: BP 121/97; PULSE 99; RESP 20; TEMP 98.1; O2SAT 95
[2023-08-11 16:50] VITALS: BP 150/114; PULSE 98; RESP 19; TEMP 98.1; O2SAT 100
[2023-08-11 22:00] VITALS: BP 140/72; PULSE 95; RESP 18; TEMP 98.4; O2SAT 93
[2023-08-12] MEDS: MEROPENEM 2 GM in SODIUM CHL 0.9% 250 ML IV SCH ×3 (01:36→18:02)
[2023-08-12] MEDS: MORPHINE SULFATE 4 MG/ML SYR/VIAL IV PRN ×4 (02:35→21:10)
[2023-08-12 05:00] VITALS: BP 143/98; PULSE 92; RESP 18; TEMP 98.6; O2SAT 100
[2023-08-12 08:00] VITALS: PULSE 103; RESP 16; O2SAT 96
[2023-08-12 09:00] VITALS: BP 134/76; PULSE 103; RESP 16; TEMP 97.5; O2SAT 96
[2023-08-12] MEDS: LISINOPRIL 10 MG TAB PO SCH (09:30)
[2023-08-12] MEDS: CARVEDILOL 12.5 MG TAB PO SCH ×2 (09:30→21:11)
[2023-08-12] MEDS: FUROSEMIDE 40 MG TAB PO SCH (09:31)
[2023-08-12] MEDS: levETIRAcetam 500 MG TAB PO SCH ×2 (09:31→21:11)
[2023-08-12] MEDS: ENOXAPARIN SOD 40 MG/0.4 ML SYRINGE SC SCH (09:31)
[2023-08-12 13:00] VITALS: BP 120/90; PULSE 90; RESP 21; TEMP 98.6; O2SAT 93
[2023-08-12 17:00] VITALS: BP 152/96; PULSE 96; RESP 22; TEMP 98.6; O2SAT 97
[2023-08-12 22:00] VITALS: BP 138/101; PULSE 94; RESP 18; TEMP 98; O2SAT 94
[2023-08-13] MEDS: MEROPENEM 2 GM in SODIUM CHL 0.9% 250 ML IV SCH ×3 (01:57→18:24)
[2023-08-13] MEDS: MORPHINE SULFATE 4 MG/ML SYR/VIAL IV PRN ×5 (02:02→21:09)
[2023-08-13 04:44] VITALS: BP 155/96; PULSE 94; RESP 16; TEMP 97.7; O2SAT 95
[2023-08-13 05:44] LABS: Basophils # (auto) 0.1 10 ^3/uL (0-0.2); Basophils % (auto) 0.5 % (0.0-2.0); Eosinophils # (auto) 0.6 10 ^3/uL (0-0.8); Hematocrit 49.6 % (41.0-53.0); Hemoglobin 16.8 g/dL (13.5-17.5); Lymphocytes # (auto) 1.4 10 ^3/uL (0.4-5.4); Lymphocytes % (auto) 12.5 % (10.0-50.0); Mean Corpuscular Hemoglobin 29.9 pg (28.0-32.0); Mean Corpuscular Hgb Conc. 33.8 g/dL (32.0-36.0); Mean Corpuscular Volume 88.7 fL (80.0-100.0); Monocytes # (auto) 1.3 10 ^3/uL (0-1.3); Monocytes % (auto) 11.4 % (0.0-12.0); Neutrophils # (auto) 8.2 10 ^3/uL (1.6-8.6); Neutrophils % (auto) 70.6 % (37.0-80.0); Nucleated Red Blood Cells % 0.1 %; Red Cell Distribution Width 17.1 % (11.8-14.3); White Blood Cell 11.6 10^3/uL (4.4-10.8)
[2023-08-13 05:57] LABS: Alanine Aminotransferase 32 U/L (7-40); Albumin 3.6 g/dL (3.2-4.8); Alkaline Phosphatase 157 U/L (46-116); Anion Gap 4 (5-15); Aspartate Aminotransferase 37 U/L (13-40); BUN/Creatinine Ratio 10.6 (10.0-20.0); Blood Urea Nitrogen 11 mg/dL (9-23); Calcium 8.8 mg/dL (8.7-10.4); Carbon Dioxide 27 mmol/L (20-30); Chloride 104 mmol/L (98-107); Glucose 97 mg/dL (74-106); Potassium 4.4 mmol/L (3.5-5.1); Sodium 135 mmol/L (136-145)
[2023-08-13 05:58] LABS: Bilirubin, Total 1.1 mg/dL (0.2-1.0)
[2023-08-13 08:10] VITALS: BP 159/85; PULSE 90; RESP 22; TEMP 97.8; O2SAT 100
[2023-08-13] MEDS: levETIRAcetam 500 MG TAB PO SCH ×2 (09:04→21:08)
[2023-08-13] MEDS: LISINOPRIL 10 MG TAB PO SCH (09:05)
[2023-08-13] MEDS: CARVEDILOL 12.5 MG TAB PO SCH ×2 (09:05→21:08)
[2023-08-13] MEDS: FUROSEMIDE 40 MG TAB PO SCH (09:06)
[2023-08-13] MEDS: ENOXAPARIN SOD 40 MG/0.4 ML SYRINGE SC SCH (09:06)
[2023-08-13 12:00] VITALS: BP 146/96; PULSE 89; RESP 21; TEMP 98.1; O2SAT 94
[2023-08-13 16:15] VITALS: BP 128/90; PULSE 89; RESP 20; TEMP 98.1; O2SAT 92
[2023-08-13 22:00] VITALS: BP 138/81; PULSE 101; RESP 20; TEMP 97.5; O2SAT 96
[2023-08-14] VITALS (7 sets, daily range): BP systolic 113–142; BP diastolic 72–106; PULSE 77–88; RESP 16–19; TEMP 97.1–97.8; O2SAT 95–100
[2023-08-14] MEDS: MEROPENEM 2 GM in SODIUM CHL 0.9% 250 ML IV SCH ×3 (02:39→18:44)
[2023-08-14] MEDS: MORPHINE SULFATE 4 MG/ML SYR/VIAL IV PRN ×3 (03:42→16:44)
[2023-08-14] MEDS: ENOXAPARIN SOD 40 MG/0.4 ML SYRINGE SC SCH (10:03)
[2023-08-14] MEDS: LISINOPRIL 10 MG TAB PO SCH (10:07)
[2023-08-14] MEDS: levETIRAcetam 500 MG TAB PO SCH ×2 (10:08→22:25)
[2023-08-14] MEDS: FUROSEMIDE 40 MG TAB PO SCH (10:09)
[2023-08-14] MEDS: CARVEDILOL 12.5 MG TAB PO SCH ×2 (10:10→22:25)
[2023-08-14] MEDS ORDERED: HYDR-4798 PO ×2 (10:37)
[2023-08-14] MEDS: HYDROcodone-ACET 5/325MG TAB PO PRN ×2 (13:24→22:24)
[2023-08-15] MEDS: MEROPENEM 2 GM in SODIUM CHL 0.9% 250 ML IV SCH ×3 (02:59→18:46)
[2023-08-15] MEDS: HYDROcodone-ACET 5/325MG TAB PO PRN ×2 (04:39→10:09)
[2023-08-15 04:57] VITALS: BP 121/89; PULSE 83; RESP 16; TEMP 97.1; O2SAT 96
[2023-08-15 08:47] VITALS: BP 141/101; PULSE 91; RESP 19; TEMP 97.3; O2SAT 100
[2023-08-15] MEDS: CARVEDILOL 12.5 MG TAB PO SCH ×2 (10:08→21:20)
[2023-08-15] MEDS: LISINOPRIL 10 MG TAB PO SCH (10:08)
[2023-08-15] MEDS: ENOXAPARIN SOD 40 MG/0.4 ML SYRINGE SC SCH (10:09)
[2023-08-15] MEDS: levETIRAcetam 500 MG TAB PO SCH ×2 (10:09→21:18)
[2023-08-15] MEDS: FUROSEMIDE 40 MG TAB PO SCH (10:09)
[2023-08-15 10:54] LABS: Hematocrit 54.4 % (41.0-53.0); Mean Corpuscular Hemoglobin 29.2 pg (28.0-32.0); Mean Corpuscular Volume 88.3 fL (80.0-100.0); Red Blood Cells 6.16 10^6/uL (4.5-5.90); Red Cell Distribution Width 16.8 % (11.8-14.3); White Blood Cell 8.9 10^3/uL (4.4-10.8)
[2023-08-15 10:56] LABS: Basophils % (manual) 0 (0.0-2.0); Blast Cells 0; Myelocytes % 0; Promyelocytes % 0; Reactive Lymphocytes 0
[2023-08-15] MEDS: MORPHINE SULFATE 4 MG/ML SYR/VIAL IV PRN ×2 (11:53→21:20)
[2023-08-15 12:10] LABS: Band Neutrophils % (manual) 5; Eosinophils % (manual) 4 (0-7); Lymphocytes % (manual) 22 (10.0-50.0); Metamyelocytes % 2; Monocytes % (manual) 6 (0-12); Platelet Estimate Adequate
[2023-08-15 13:00] VITALS: BP 138/93; PULSE 86; RESP 19; TEMP 97.1; O2SAT 95
[2023-08-15] MEDS ORDERED: SPIRONOLACTONE 25 MG TAB PO ONE (13:15)
[2023-08-15 16:43] LABS: Chloride 104 mmol/L (98-107)
[2023-08-15 16:46] LABS: Calcium 9.1 mg/dL (8.7-10.4); Carbon Dioxide 27 mmol/L (20-30)
[2023-08-15 16:51] LABS: Glucose 119 mg/dL (74-106)
[2023-08-15 16:55] LABS: BUN/Creatinine Ratio 17.5 (10.0-20.0); Blood Urea Nitrogen 14 mg/dL (9-23); Potassium 4.1 mmol/L (3.5-5.1)
[2023-08-15 16:58] VITALS: BP 100/66; PULSE 85; RESP 18; TEMP 97.7; O2SAT 92
[2023-08-15 18:02] LABS: Anion Gap 4 (5-15); Sodium 135 mmol/L (136-145)
[2023-08-15 20:00] VITALS: BP 114/78; PULSE 86; RESP 22; TEMP 97.6
[2023-08-15 22:00] VITALS: BP 114/78; PULSE 86; RESP 22; TEMP 97.6; O2SAT 96
[2023-08-16] MEDS: MEROPENEM 2 GM in SODIUM CHL 0.9% 250 ML IV SCH ×3 (03:38→11:26)
[2023-08-16] MEDS: MORPHINE SULFATE 4 MG/ML SYR/VIAL IV PRN ×4 (03:53→18:27)
[2023-08-16 05:00] VITALS: BP 137/99; PULSE 85; RESP 20; TEMP 97.8; O2SAT 94
[2023-08-16] MEDS: EMPAGLIFLOZIN 10 MG TAB PO SCH (06:39)
[2023-08-16 08:00] VITALS: PULSE 85; O2SAT 96
[2023-08-16 09:00] VITALS: BP 130/89; PULSE 85; RESP 16; TEMP 98.1; O2SAT 96
[2023-08-16 09:15] LABS: Basophils # (auto) 0.1 10 ^3/uL (0-0.2); Basophils % (auto) 1.2 % (0.0-2.0); Eosinophils # (auto) 0.7 10 ^3/uL (0-0.8); Hemoglobin 16.9 g/dL (13.5-17.5); Lymphocytes # (auto) 1.8 10 ^3/uL (0.4-5.4); Monocytes # (auto) 1.2 10 ^3/uL (0-1.3)
[2023-08-16 09:18] LABS: Eosinophils % (auto) 7.8 % (0.0-7.0); Hematocrit 50.9 % (41.0-53.0); Lymphocytes % (auto) 19.8 % (10.0-50.0); Mean Corpuscular Hemoglobin 29.4 pg (28.0-32.0); Mean Corpuscular Hgb Conc. 33.1 g/dL (32.0-36.0); Mean Corpuscular Volume 88.8 fL (80.0-100.0); Monocytes % (auto) 12.4 % (0.0-12.0); Neutrophils # (auto) 5.5 10 ^3/uL (1.6-8.6); Neutrophils % (auto) 58.8 % (37.0-80.0); Nucleated Red Blood Cells % 0.2 %; Red Blood Cells 5.73 10^6/uL (4.5-5.90); Red Cell Distribution Width 16.3 % (11.8-14.3); White Blood Cell 9.3 10^3/uL (4.4-10.8)
[2023-08-16 09:33] LABS: Anion Gap 6 (5-15); Carbon Dioxide 26 mmol/L (20-30); Chloride 103 mmol/L (98-107); Potassium 4.3 mmol/L (3.5-5.1); Sodium 135 mmol/L (136-145)
[2023-08-16 09:35] LABS: Calcium 9.1 mg/dL (8.5-10.1)
[2023-08-16 09:39] LABS: Blood Urea Nitrogen 12 mg/dL (9-23); Glucose 80 mg/dL (74-106)
[2023-08-16] MEDS: LISINOPRIL 10 MG TAB PO SCH (09:41)
[2023-08-16] MEDS: levETIRAcetam 500 MG TAB PO SCH ×2 (09:42→21:21)
[2023-08-16] MEDS: CARVEDILOL 12.5 MG TAB PO SCH ×2 (09:42→21:21)
[2023-08-16] MEDS: ENOXAPARIN SOD 40 MG/0.4 ML SYRINGE SC SCH (09:42)
[2023-08-16] MEDS: FUROSEMIDE 40 MG TAB PO SCH (09:42)
[2023-08-16] MEDS: SPIRONOLACTONE 25 MG TAB PO SCH (09:46)
[2023-08-16] MEDS ORDERED: AMPICILLIN & SULBACTAM SODIUM 3 GM in SODIUM CHL 0.9% 100 ML IV SCH (10:30)
[2023-08-16 13:00] VITALS: BP 161/81; PULSE 68; RESP 19; TEMP 98.5; O2SAT 97
[2023-08-16] MEDS: HYDROcodone-ACET 5/325MG TAB PO PRN (15:28)
[2023-08-16 20:00] VITALS: BP 142/76; PULSE 78; RESP 20; TEMP 97.8; O2SAT 91
[2023-08-16 22:00] VITALS: BP 142/76; PULSE 78; RESP 20; TEMP 97.8; O2SAT 91
[2023-08-17] VITALS (7 sets, daily range): BP systolic 105–136; BP diastolic 69–89; PULSE 72–90; RESP 17–22; TEMP 36.3; O2SAT 94–97
[2023-08-17] MEDS: MORPHINE SULFATE 4 MG/ML SYR/VIAL IV PRN ×5 (00:24→23:29)
[2023-08-17] MEDS: MEROPENEM 2 GM in SODIUM CHL 0.9% 250 ML IV SCH ×3 (01:55→17:44)
[2023-08-17] MEDS: EMPAGLIFLOZIN 10 MG TAB PO SCH (07:12)
[2023-08-17] MEDS: FUROSEMIDE 40 MG TAB PO SCH (09:29)
[2023-08-17] MEDS: CARVEDILOL 12.5 MG TAB PO SCH ×2 (09:29→23:15)
[2023-08-17] MEDS: SPIRONOLACTONE 25 MG TAB PO SCH (09:29)
[2023-08-17] MEDS: levETIRAcetam 500 MG TAB PO SCH ×2 (09:29→23:16)
[2023-08-17] MEDS: LISINOPRIL 10 MG TAB PO SCH (09:31)
[2023-08-17] MEDS: ENOXAPARIN SOD 40 MG/0.4 ML SYRINGE SC SCH (09:31)
[2023-08-17 12:39] LABS: Basophils # (auto) 0.1 10 ^3/uL (0-0.2); Lymphocytes # (auto) 2.4 10 ^3/uL (0.4-5.4); Monocytes # (auto) 1.3 10 ^3/uL (0-1.3); Neutrophils # (auto) 6.4 10 ^3/uL (1.6-8.6)
[2023-08-17 12:41] LABS: Basophils % (auto) 1.2 % (0.0-2.0); Eosinophils # (auto) 0.9 10 ^3/uL (0-0.8); Eosinophils % (auto) 7.8 % (0.0-7.0); Hematocrit 51.6 % (41.0-53.0); Hemoglobin 17.1 g/dL (13.5-17.5); Lymphocytes % (auto) 21.7 % (10.0-50.0); Mean Corpuscular Hemoglobin 29.5 pg (28.0-32.0); Mean Corpuscular Hgb Conc. 33.2 g/dL (32.0-36.0); Mean Corpuscular Volume 88.7 fL (80.0-100.0); Monocytes % (auto) 11.4 % (0.0-12.0); Neutrophils % (auto) 57.9 % (37.0-80.0); Nucleated Red Blood Cells % 0.2 %; Red Blood Cells 5.81 10^6/uL (4.5-5.90); Red Cell Distribution Width 16.8 % (11.8-14.3); White Blood Cell 11.1 10^3/uL (4.4-10.8)
[2023-08-17 13:36] LABS: Chloride 102 mmol/L (98-107); Potassium 4.1 mmol/L (3.5-5.1); Sodium 135 mmol/L (136-145)
[2023-08-17 13:37] LABS: Anion Gap 4 (5-15); Carbon Dioxide 29 mmol/L (20-30)
[2023-08-17 13:38] LABS: Calcium 9.1 mg/dL (8.7-10.4)
[2023-08-17 13:42] LABS: BUN/Creatinine Ratio 18.5 (10.0-20.0); Blood Urea Nitrogen 17 mg/dL (9-23); Glucose 88 mg/dL (74-106)
[2023-08-18] MEDS: MEROPENEM 2 GM in SODIUM CHL 0.9% 250 ML IV SCH ×3 (02:16→18:42)
[2023-08-18 05:00] VITALS: BP 134/92; PULSE 70; RESP 22; TEMP 97.6; O2SAT 97
[2023-08-18] MEDS: EMPAGLIFLOZIN 10 MG TAB PO SCH (06:32)
[2023-08-18] MEDS: MORPHINE SULFATE 4 MG/ML SYR/VIAL IV PRN ×3 (06:33→13:59)
[2023-08-18 06:57] LABS: Basophils # (auto) 0.1 10 ^3/uL (0-0.2); Basophils % (auto) 1.1 % (0.0-2.0); Eosinophils # (auto) 0.6 10 ^3/uL (0-0.8); Eosinophils % (auto) 6.6 % (0.0-7.0); Hemoglobin 17.3 g/dL (13.5-17.5); Lymphocytes # (auto) 1.7 10 ^3/uL (0.4-5.4); Lymphocytes % (auto) 19.1 % (10.0-50.0); Mean Corpuscular Hemoglobin 29.4 pg (28.0-32.0); Mean Corpuscular Hgb Conc. 33.4 g/dL (32.0-36.0); Mean Corpuscular Volume 88.2 fL (80.0-100.0); Monocytes # (auto) 1.1 10 ^3/uL (0-1.3); Neutrophils # (auto) 5.5 10 ^3/uL (1.6-8.6); Neutrophils % (auto) 61.2 % (37.0-80.0); Nucleated Red Blood Cells % 0.3 %; Red Blood Cells 5.89 10^6/uL (4.5-5.90); Red Cell Distribution Width 16.3 % (11.8-14.3)
[2023-08-18 07:07] LABS: Chloride 101 mmol/L (98-107); Potassium 4.3 mmol/L (3.5-5.1); Sodium 134 mmol/L (136-145)
[2023-08-18 07:08] LABS: Anion Gap 8 (5-15); Calcium 9.1 mg/dL (8.5-10.1); Carbon Dioxide 25 mmol/L (20-30)
[2023-08-18 07:13] LABS: BUN/Creatinine Ratio 17.9 (10.0-20.0); Blood Urea Nitrogen 15 mg/dL (9-23); Glucose 89 mg/dL (74-106)
[2023-08-18 07:30] VITALS: BP 121/81; PULSE 80; TEMP 36.4
[2023-08-18 09:00] VITALS: BP 117/85; PULSE 81; RESP 16; TEMP 97.7; O2SAT 95
[2023-08-18] MEDS: levETIRAcetam 500 MG TAB PO SCH ×2 (10:06→22:11)
[2023-08-18] MEDS: FUROSEMIDE 40 MG TAB PO SCH (10:07)
[2023-08-18] MEDS: CARVEDILOL 12.5 MG TAB PO SCH ×2 (10:07→22:11)
[2023-08-18] MEDS: SPIRONOLACTONE 25 MG TAB PO SCH (10:07)
[2023-08-18] MEDS: ENOXAPARIN SOD 40 MG/0.4 ML SYRINGE SC SCH (10:08)
[2023-08-18] MEDS: LISINOPRIL 10 MG TAB PO SCH (10:09)
[2023-08-18 13:00] VITALS: BP 124/73; PULSE 83; RESP 17; TEMP 98; O2SAT 95
[2023-08-18 16:54] VITALS: BP 117/85; PULSE 84; RESP 18; TEMP 98.3; O2SAT 96
[2023-08-18] MEDS: HYDROcodone-ACET 5/325MG TAB PO PRN (20:22)
[2023-08-18 22:00] VITALS: BP 149/80; PULSE 89; RESP 20; TEMP 98.2; O2SAT 94
[2023-08-18] MEDS ORDERED: MORPHINE SULFATE INJ 2 MG/ml SYRG IV ONE (23:30)
[2023-08-19] MEDS: MEROPENEM 2 GM in SODIUM CHL 0.9% 250 ML IV SCH ×3 (02:29→17:33)
[2023-08-19 05:33] VITALS: BP 114/73; PULSE 75; RESP 20; TEMP 97.8; O2SAT 92
[2023-08-19] MEDS: EMPAGLIFLOZIN 10 MG TAB PO SCH (06:24)
[2023-08-19] MEDS: HYDROcodone-ACET 5/325MG TAB PO PRN ×3 (06:25→18:16)
[2023-08-19 08:00] VITALS: BP 112/76; PULSE 78; RESP 20; TEMP 97.6; O2SAT 92
[2023-08-19 09:00] VITALS: BP 112/76; PULSE 78; RESP 20; TEMP 97.6; O2SAT 92
[2023-08-19] MEDS: levETIRAcetam 500 MG TAB PO SCH ×2 (10:08→21:08)
[2023-08-19] MEDS: CARVEDILOL 12.5 MG TAB PO SCH ×2 (10:09→21:09)
[2023-08-19] MEDS: SPIRONOLACTONE 25 MG TAB PO SCH (10:09)
[2023-08-19] MEDS: FUROSEMIDE 40 MG TAB PO SCH (10:10)
[2023-08-19] MEDS: LISINOPRIL 10 MG TAB PO SCH (10:10)
[2023-08-19] MEDS: ENOXAPARIN SOD 40 MG/0.4 ML SYRINGE SC SCH (10:11)
[2023-08-19 12:49] VITALS: BP 135/90; PULSE 79; RESP 20; TEMP 98; O2SAT 96
[2023-08-19 20:00] VITALS: RESP 20; O2SAT 92
[2023-08-19 22:00] VITALS: BP 111/63; PULSE 66; RESP 16; TEMP 97.4; O2SAT 94
[2023-08-20] VITALS (7 sets, daily range): BP systolic 106–137; BP diastolic 65–94; PULSE 64–101; RESP 16–20; TEMP 97.5–98.8; O2SAT 92–99
[2023-08-20] MEDS: MEROPENEM 2 GM in SODIUM CHL 0.9% 250 ML IV SCH ×3 (01:18→17:09)
[2023-08-20] MEDS: HYDROcodone-ACET 5/325MG TAB PO PRN ×3 (04:07→20:10)
[2023-08-20] MEDS: EMPAGLIFLOZIN 10 MG TAB PO SCH (06:00)
[2023-08-20] MEDS: LISINOPRIL 10 MG TAB PO SCH (09:19)
[2023-08-20] MEDS: levETIRAcetam 500 MG TAB PO SCH ×2 (09:19→21:19)
[2023-08-20] MEDS: CARVEDILOL 12.5 MG TAB PO SCH ×2 (09:20→21:19)
[2023-08-20] MEDS: ENOXAPARIN SOD 40 MG/0.4 ML SYRINGE SC SCH (09:21)
[2023-08-20] MEDS: FUROSEMIDE 40 MG TAB PO SCH (09:21)
[2023-08-20] MEDS: SPIRONOLACTONE 25 MG TAB PO SCH (09:21)
[2023-08-20 13:04] LABS: Basophils # (auto) 0.1 10 ^3/uL (0-0.2); Basophils % (auto) 1.4 % (0.0-2.0); Eosinophils # (auto) 0.6 10 ^3/uL (0-0.8); Eosinophils % (auto) 7.9 % (0.0-7.0); Hematocrit 50.1 % (41.0-53.0); Hemoglobin 16.6 g/dL (13.5-17.5); Lymphocytes # (auto) 1.4 10 ^3/uL (0.4-5.4); Lymphocytes % (auto) 19.9 % (10.0-50.0); Mean Corpuscular Hemoglobin 29.7 pg (28.0-32.0); Mean Corpuscular Hgb Conc. 33.2 g/dL (32.0-36.0); Mean Corpuscular Volume 89.2 fL (80.0-100.0); Monocytes # (auto) 0.9 10 ^3/uL (0-1.3); Monocytes % (auto) 12.2 % (0.0-12.0); Neutrophils # (auto) 4.2 10 ^3/uL (1.6-8.6); Neutrophils % (auto) 58.6 % (37.0-80.0); Red Blood Cells 5.61 10^6/uL (4.5-5.90); Red Cell Distribution Width 16.3 % (11.8-14.3); White Blood Cell 7.2 10^3/uL (4.4-10.8)
[2023-08-20 13:54] LABS: Chloride 103 mmol/L (98-107); Potassium 4.6 mmol/L (3.5-5.1); Sodium 134 mmol/L (136-145)
[2023-08-20 13:55] LABS: Anion Gap 5 (5-15); Calcium 8.9 mg/dL (8.5-10.1); Carbon Dioxide 26 mmol/L (20-30)
[2023-08-20 14:00] LABS: BUN/Creatinine Ratio 15.6 (10.0-20.0); Blood Urea Nitrogen 14 mg/dL (9-23); Glucose 97 mg/dL (74-106)
[2023-08-21] MEDS: MEROPENEM 2 GM in SODIUM CHL 0.9% 250 ML IV SCH ×2 (01:37→09:18)
[2023-08-21 04:41] VITALS: BP 113/64; PULSE 71; RESP 18; TEMP 98.2; O2SAT 94
[2023-08-21] MEDS: EMPAGLIFLOZIN 10 MG TAB PO SCH (05:56)
[2023-08-21 08:00] VITALS: BP 128/75; PULSE 79; RESP 19; TEMP 97.6; O2SAT 97
[2023-08-21 09:05] VITALS: BP 128/75; PULSE 79; RESP 19; TEMP 97.6; O2SAT 97
[2023-08-21] MEDS: CARVEDILOL 12.5 MG TAB PO SCH (09:19)
[2023-08-21] MEDS: levETIRAcetam 500 MG TAB PO SCH (09:19)
[2023-08-21] MEDS: SPIRONOLACTONE 25 MG TAB PO SCH (09:19)
[2023-08-21] MEDS: FUROSEMIDE 40 MG TAB PO SCH (09:19)
[2023-08-21] MEDS: LISINOPRIL 10 MG TAB PO SCH (09:20)
[2023-08-21] MEDS: ENOXAPARIN SOD 40 MG/0.4 ML SYRINGE SC SCH (09:21)
[2023-08-21] MEDS ORDERED: PIPERACILLIN-TAZOB 3.375GM 100 ML IV SCH (22:00)
[2023-08-21] MEDS ORDERED: MEROPENEM 1GM IVPB 100 ML IV SCH (22:00)
== END 2023-08-21 11:00 | disposition left against medical advice (07) | DRG 720 ==
LOC: ER 23:10 → EDBD 23:10 → OVERFLOW 08-08 05:42 → EEVIPCON 08-08 05:42 → WEST WING 08-08 14:53 → TELE-WESTW 08-21 10:47 → WEST WING 08-21 10:48
PROVIDERS: ADMIT Internal Medicine Pulmonary Disease; ATTEND Student in an Organized Health Care Education/Training Program
PROC: 05H933Z Insertion of Infusion Device into Right Brachial Vein, Percutaneous Approach (ICD-10-PCS; principal; 2023-08-12)
PROC: B54MZZA Ultrasonography of Right Upper Extremity Veins, Guidance (ICD-10-PCS; 2023-08-12)
DX: A41.9 Sepsis, unspecified organism (principal); I50.43 Acute on chronic combined systolic (congestive) and diastolic (congestive) heart failure; I83.019 Varicose veins of right lower extremity with ulcer of unspecified site; I42.7 Cardiomyopathy due to drug and external agent; I11.0 Hypertensive heart disease with heart failure; L03.115 Cellulitis of right lower limb; I16.0 Hypertensive urgency; Z53.29 Procedure and treatment not carried out because of patient's decision for other reasons; F15.20 Other stimulant dependence, uncomplicated; E66.01 Morbid (severe) obesity due to excess calories; Z68.41 Body mass index [BMI] 40.0-44.9, adult; Z59.00 Homelessness unspecified; Z91.199 Patient's noncompliance with other medical treatment and regimen due to unspecified reason
CPT/HCPCS: 36415; 73590; 73718; 80048; 80053; 80061; 80202; 80307; 83036; 83605; 83880; 84443; 85007; 85025; 85027; 87040; 87077; 87081; 87186; 87205; 93306; 93925; 96379; G0378; J0696; J3490